=== PATIENT | male | born 1960 | race Caucasian/White ===

== ENCOUNTER 2019-01-13 15:01 | Emergency (ER) | payer OTHER ==
[~2019-01-13] VITALS: Ht 188 cm; Wt 90.7 kg
== END 2019-01-13 17:23 | disposition home or self-care (01) ==
LOC: ER 15:01
DX: S10.83XA Contusion of other specified part of neck, initial encounter (principal); W10.8XXA Fall (on) (from) other stairs and steps, initial encounter; Y93.89 Activity, other specified; Y92.89 Other specified places as the place of occurrence of the external cause; Y99.8 Other external cause status

== ENCOUNTER 2019-03-13 15:15 | Outpatient (CLI) | payer OTHER | END 2019-03-13 15:18 | disposition home or self-care (01) | LOC: TOM 15:15 | DX: R51 Headache (principal) ==

== ENCOUNTER 2019-04-17 14:44 | Outpatient (CLI) | payer OTHER ==
[~2019-04-17] VITALS: Ht 185.4 cm; Wt 90.7 kg
== END 2019-04-17 15:00 | disposition home or self-care (01) ==
LOC: OFIC 805 14:44
DX: J38.4 Edema of larynx (principal); J34.89 Other specified disorders of nose and nasal sinuses; R09.81 Nasal congestion; J38.3 Other diseases of vocal cords; R49.0 Dysphonia

== ENCOUNTER 2019-04-22 19:53 | Emergency (ER) | payer OTHER ==
[~2019-04-22] VITALS: Ht 185.4 cm; Wt 90.7 kg
[2019-04-22] MEDS ORDERED: CLONAZEPAM1 M1 (20:22)
[2019-04-22] MEDS ORDERED: CEFADROXIL500 MG PO (21:33)
== END 2019-04-22 21:41 | disposition home or self-care (01) ==
LOC: ER 19:53
DX: R60.0 Localized edema (principal); I87.2 Venous insufficiency (chronic) (peripheral)

== ENCOUNTER 2019-05-01 17:49 | Emergency (ER) | payer OTHER ==
[~2019-05-01] VITALS: Ht 185.4 cm; Wt 93.0 kg
[~2019-05-01 17:49] MED LIST: CEFADROXIL500 MG PO; CLONAZEPAM1 M1
== END 2019-05-02 00:26 | disposition home or self-care (01) ==
LOC: ER 17:49
DX: L03.116 Cellulitis of left lower limb (principal); L03.115 Cellulitis of right lower limb

== ENCOUNTER 2019-05-03 15:22 | Outpatient (CLI) | payer OTHER | END 2019-05-03 15:58 | disposition home or self-care (01) | LOC: NUCLEAR 15:22 | DX: M79.606 Pain in leg, unspecified (principal) ==

== ENCOUNTER 2019-05-05 09:21 | Outpatient (CLI) | payer OTHER | END 2019-05-05 09:56 | disposition home or self-care (01) | LOC: NUCLEAR 09:21 | DX: I73.9 Peripheral vascular disease, unspecified (principal) ==

== ENCOUNTER 2019-05-31 13:06 | Outpatient (CLI) | payer OTHER | END 2019-05-31 13:48 | disposition home or self-care (01) | LOC: MRI 13:06 | DX: M54.5 Low back pain (principal) | CPT/HCPCS: 72141; 72148 ==

== ENCOUNTER 2019-11-17 18:46 | Outpatient (CLI) | payer OTHER | END 2019-11-17 19:05 | disposition home or self-care (01) | LOC: LAB 18:46 → RAD 18:46 | DX: R05 Cough (principal) ==

== ENCOUNTER 2019-11-22 10:10 | Outpatient (CLI) | payer OTHER | END 2019-11-22 15:00 | disposition home or self-care (01) | LOC: LAB 10:10 | DX: R94.6 Abnormal results of thyroid function studies (principal) ==

== ENCOUNTER → 2019-11-22 | Outpatient (CLI) | payer OTHER | END | disposition home or self-care (01) | LOC: MRI 09:12 | DX: G44.89 Other headache syndrome (principal) | CPT/HCPCS: 70551 ==

== ENCOUNTER → 2020-01-15 | Outpatient (CLI) | payer OTHER | END | disposition home or self-care (01) | LOC: MRI 10:36 | DX: M54.2 Cervicalgia (principal); M54.32 Sciatica, left side | CPT/HCPCS: 72141; 72148 ==

== ENCOUNTER 2020-05-09 15:10 | Outpatient (CLI) | payer OTHER ==
[~2020-05-09 15:10] MED LIST changes: +ROBAXIN-750750 MG PO
== END 2020-05-09 15:19 | disposition home or self-care (01) ==
LOC: RAD 15:10
PROVIDERS: ATTEND Neurological Surgery
DX: M43.16 Spondylolisthesis, lumbar region (principal)

== ENCOUNTER 2020-05-15 13:58 | Inpatient (IN) | payer OTHER ==
[~2020-05-15] VITALS: Ht 188 cm; Wt 81.6 kg
[2020-05-20] MEDS ORDERED: ADVIL PO (11:05)
[2020-05-20] MEDS ORDERED: DEPAKOTE ER500 MG PO (11:06)
[2020-05-27] MEDS ORDERED: ESKALITH300 MG (11:56)
[2020-05-27] MEDS ORDERED: SYNTHROID75 MCG PO (11:57)
[2020-05-29] MEDS ORDERED: GABAPENTIN300 MG PO (06:33)
[2020-05-29] MEDS ORDERED: TRAZODONE HCL50 MG PO (06:34)
[2020-05-29] MEDS ORDERED: OXYC1TAB9 PO (06:35)
[2020-05-29] MEDS ORDERED: LEVOTHYROXINE75 MCG PO (06:35)
== END 2020-05-29 18:39 | DRG 455 ==
LOC: SURH 05-27 05:25 → O/R 05-27 05:25 → RECOVERY 05-27 07:00 → SURH 05-27 13:14
PROVIDERS: ADMIT Neurological Surgery; ATTEND Neurological Surgery
PROC: 0SG00J1 Fusion of Lumbar Vertebral Joint with Synthetic Substitute, Posterior Approach, Posterior Column, Open Approach (ICD-10-PCS; 2020-05-27)
PROC: 0SG00A0 Fusion of Lumbar Vertebral Joint with Interbody Fusion Device, Anterior Approach, Anterior Column, Open Approach (ICD-10-PCS; principal; 2020-05-27 07:00)
DX: M48.061 Spinal stenosis, lumbar region without neurogenic claudication (principal); M51.36 Other intervertebral disc degeneration, lumbar region; E03.8 Other specified hypothyroidism

== ENCOUNTER 2020-05-23 14:00 | Outpatient (CLI) | payer OTHER ==
[~2020-05-23 14:00] MED LIST changes: +ADVIL PO; +DEPAKOTE ER500 MG PO
== END 2020-05-23 14:19 | disposition home or self-care (01) ==
LOC: NUCLEAR 14:00
PROVIDERS: ATTEND Neurological Surgery
DX: M81.0 Age-related osteoporosis without current pathological fracture (principal); Z13.820 Encounter for screening for osteoporosis

== ENCOUNTER → 2020-07-09 | Outpatient (CLI) | payer OTHER ==
[~2020-07-09] MED LIST changes: +ESKALITH300 MG; +GABAPENTIN300 MG PO; +LEVOTHYROXINE75 MCG PO; +OXYC1TAB9 PO; +SYNTHROID75 MCG PO; +TRAZODONE HCL50 MG PO
== END | disposition home or self-care (01) ==
LOC: SONOGRAMA 12:27
PROVIDERS: ATTEND Surgery
DX: M54.5 Low back pain (principal); M48.062 Spinal stenosis, lumbar region with neurogenic claudication; R39.81 Functional urinary incontinence

== ENCOUNTER → 2020-07-22 | Outpatient (CLI) | payer OTHER | END | disposition home or self-care (01) | LOC: MRI 07-18 13:15 | PROVIDERS: ATTEND Psychiatry & Neurology Neurology | DX: G21.11 Neuroleptic induced parkinsonism (principal) | CPT/HCPCS: 70553 ==

== ENCOUNTER 2020-08-23 10:00 | Outpatient (CLI) | payer OTHER | END 2020-08-23 10:12 | disposition home or self-care (01) | LOC: MRI 10:00 | PROVIDERS: ATTEND Family Medicine | DX: M25.512 Pain in left shoulder (principal) | CPT/HCPCS: 73221 ==

== ENCOUNTER → 2020-09-27 | Outpatient (CLI) | payer OTHER | END | disposition home or self-care (01) | LOC: RAD 11:43 | PROVIDERS: ATTEND Neurological Surgery | DX: M48.062 Spinal stenosis, lumbar region with neurogenic claudication (principal) ==

== ENCOUNTER 2020-12-18 09:57 | Outpatient (CLI) | payer OTHER ==
[~2020-12-18 09:57] MED LIST changes: +TRAMADOL HCL50 MG PO; +ZIPSOR25 MG PO
[2021-01-03] MEDS ORDERED: TRAMADOL HCL50 MG PO (10:49)
[2021-01-03] MEDS ORDERED: ZIPSOR25 MG PO (10:49)
[2021-01-03] MEDS ORDERED: ROBAXIN-750750 MG PO (10:49)
[2021-01-03] MEDS ORDERED: DICLOFENAC POTA50 MG PO (11:01)
== END 2020-12-18 10:19 | disposition home or self-care (01) ==
LOC: RAD 09:57 → MRI 10:15 → RAD 10:19
PROVIDERS: ATTEND Neurological Surgery
DX: M48.02 Spinal stenosis, cervical region (principal); M53.86 Other specified dorsopathies, lumbar region
CPT/HCPCS: 72141

== ENCOUNTER 2021-07-29 11:13 | Outpatient (CLI) | payer OTHER ==
[~2021-07-29 11:13] MED LIST changes: +DICLOFENAC POTA50 MG PO
== END 2021-07-29 11:32 | disposition home or self-care (01) ==
LOC: RAD 11:13
PROVIDERS: ATTEND Neurological Surgery
DX: M48.062 Spinal stenosis, lumbar region with neurogenic claudication (principal)

== ENCOUNTER → 2022-11-13 | Outpatient (CLI) | payer OTHER ==
[~2022-11-13] MED LIST changes: +KETO10TA2 PO; +METHOCARBAMOL750 MG PO; +ORPHENADRINE C100 MG PO
== END | disposition home or self-care (01) ==
LOC: MRI 12:46
PROVIDERS: ATTEND Physical Medicine & Rehabilitation
DX: M54.2 Cervicalgia (principal); M62.830 Muscle spasm of back; S09.8XXA Other specified injuries of head, initial encounter
CPT/HCPCS: 72141

== ENCOUNTER → 2023-05-18 | Outpatient (CLI) | payer OTHER | END | disposition home or self-care (01) | LOC: NUCLEAR 10:26 | PROVIDERS: ATTEND Thoracic Surgery (Cardiothoracic Vascular Surgery) | DX: I73.9 Peripheral vascular disease, unspecified (principal) ==

== ENCOUNTER → 2025-09-08 | Emergency (ER) | payer OTHER ==
[~2025-09-08] VITALS: Ht 182.9 cm; Wt 90.7 kg
[~2025-09-08] MED LIST changes: +0.9 % SODIUM CHLORIDE 500 ML IV ONE; +KETOROLAC TROMETHAMINE 15 MG VIAL IU ONE; +KETOROLAC TROMETHAMINE 30 MG VIAL ONE
[2025-09-08 09:58] LABS: BASO % 0.8 % (0.1-1.2); EOS # 0.50 (0.04-0.54); EOS % 5.1 % (0.7-7.0); LYMPH # 2.29 (1.18-3.74); LYMPH % 23.2 % (19.3-53.1); MEAN PLATELET VOLUME 8.90 fl (9.4-12.4); MONO # 0.74 (0.24-0.82); MONO % 7.5 % (4.7-12.5); NEUT # 6.21 (1.56-6.13); NEUT % 63.1 % (34.0-71.1); RED CELL DISTRIBUTION WIDTH 13.2 % (11.6-14.4)
[2025-09-08 10:29] LABS: ALT/SGPT 47 U/L (12-78); AST/SGOT 48 U/L (15-37); BILIRUBIN TOTAL 0.33 mg/dL (0.3-1.2); BILIRUBIN,CONJUGATED < 0.10 mg/dL (0.0-0.2); BUN CREA RATIO 18 (7.0-25.0); CREATININE SERUM 0.93 mg/dL (0.70-1.30); GFR 81.04; GLUCOSE FASTING 81 mg/dL (65-100); OSMOLALITY SERUM 289 MOSM/KG (275-295)
== END | disposition home or self-care (01) ==
LOC: ER 08:47
PROVIDERS: Emergency Medicine
DX: F10.929 Alcohol use, unspecified with intoxication, unspecified (principal); S00.83XA Contusion of other part of head, initial encounter; I10 Essential (primary) hypertension; W18.39XA Other fall on same level, initial encounter; Y93.89 Activity, other specified; Y92.59 Other trade areas as the place of occurrence of the external cause; F31.9 Bipolar disorder, unspecified